=== PATIENT | male | born 1960 | race Caucasian/White ===

== ENCOUNTER 2019-05-15 23:00 | Observation (INO) | payer OTHER ==
[~2019-05-15] VITALS: Ht 188 cm; Wt 113.4 kg
--- NOTE | ~2019-05-15 | PROC ---
[address] [address] PROCEDURE REPORT Name: NATALYA CHANG Room: [address] ADM IN M.R.#: [id number] Admission: 05/16/19 Attend Phys: Dontrell Masterson Discharge: Date of : 56 Report #: [id number] THIS REPORT FOR: //name// For GI report, please see the Provation report in Perceptive 7 content. By: [id number] Records Staff MILANA /TANIA
[~2019-05-15 23:00] MED LIST: ASPIR 8181 MG PO; ASPIRIN81 M2 PO; ATENOLOL 50MG T50 M1 PO; CARISOPRODOL 3350 MG PO; CO Q-10100 MG PO; FISH OIL 1,001000 M2 PO; FLEXERIL PO; GLUCOPHAGE500 MG PO; GLUCOTROL5 MG PO; HYDROCODONE-AP1 EAC6 PO; HYDROCODONE-APA1 TA1 PO; INVOKANA100 MG; LIPITOR 20 MG T20 M1 PO; LISINOPRIL20 MG PO; MEDROLDOSEPACK PO; METFORMIN HCL500 MG PO; NEURONTIN 300300 M1 PO; OMEGA 3-6-9 CO1 EACH PO; PERCOCET 10-321 EACH PO; ROBAXIN500 MG PO; TRAMADOL 50 MG50 MG PO; UNICOMPLEX M TA1 TA1 PO; ZANTAC 150MG T150 MG PO
[2019-05-15 23:05] VITALS: BP 165/96
[2019-05-15] MEDS ORDERED: CRESTOR5 MG PO (23:13)
[2019-05-15] MEDS ORDERED: COZAAR 25 MG TA25 M1 PO (23:14)
[2019-05-15] MEDS ORDERED: TRULICITY1.5 MG/0.5 SQ (23:15)
[2019-05-15] MEDS ORDERED: KRILL OIL 3001 EACH PO (23:15)
[2019-05-15] MEDS ORDERED: AMARYL4 MG PO (23:16)
[2019-05-15] MEDS ORDERED: FARXIGA10 MG PO (23:16)
[2019-05-15 23:30] LABS: ABSOLUTE EOSINOPHILS 0.3 thou/uL (0.0-0.7); ABSOLUTE LYMPHOCYTES 1.2 thou/uL (0.8-5.3); ABSOLUTE MONOCYTES 0.9 thou/uL (0.0-1.2); ABSOLUTE NEUTROPHILS 5.1 thou/uL (1.6-8.1); BASOPHILS 0.6 %; EOSINOPHILS 3.5 %; HEMATOCRIT 47.1 % (42.0-52.0); HEMOGLOBIN 16.4 gm/dL (14.0-18.0); LYMPHOCYTES 15.7 %; MCH 29.9 pg (26.0-34.0); MCHC 34.9 g/dL (28.0-37.0); MCV 85.7 fL (80.0-100.0); MONOCYTES 12.2 %; MPV 8.8 fl. (7.2-11.1); NUCLEATED RBCS 0 /100WBC; PLATELET COUNT* 239 thou/uL (150-400); RBC 5.49 mil/uL (4.50-6.00); RDW-CV 13.4 % (10.5-14.5); WBC 7.4 thou/uL (4.0-11.0)
[2019-05-15 23:45] LABS: CALCIUM 8.8 mg/dL (8.5-10.1); CREATININE 0.9 mg/dL (0.6-1.3); POTASSIUM 3.7 mmol/L (3.5-5.1)
[2019-05-15 23:51] LABS: ALBUMIN 3.7 g/dL (3.4-5.0); TOTAL BILIRUBIN 0.8 mg/dL (<0.1-1.0); TOTAL PROTEIN 7.6 g/dL (6.4-8.2)
[2019-05-16 00:59] LABS: URINE BILIRUBIN NEGATIVE (Negative); URINE BLOOD TRACE (Negative); URINE CLARITY CLEAR; URINE COLOR YELLOW; URINE GLUCOSE-RANDOM 3+ (Negative); URINE KETONES NEGATIVE (Negative); URINE LEUKOCYTES-REFLEX NEGATIVE (Negative); URINE NITRITE-REFLEX NEGATIVE (Negative); URINE PROTEIN TRACE (Negative); URINE SPECIFIC GRAVITY <= 1.005 (1.005-1.030)
[2019-05-16 03:20] VITALS: BP 173/88
[2019-05-16 03:30] VITALS: BP 173/88
--- NOTE | 2019-05-16 08:53 | EKG ---
[place] [address] ELECTROCARDIOGRAM REPORT Name: NATALYA CHANG Room: [address] ADM IN M.R.#: [id number] Admission: 05/16/19 Attend Phys: Dontrell Masterson Discharge: Date of : 56 Report #: [id number] THIS REPORT FOR: //name// [facility] ED Test Date: 2019-05-15 Test Time: 23:16:47 Pat Name: NATALYA CHANG Department: Room: [facility] Gender: M Art Editor: ABIGAIL : 1960 Requested By: Thomas Crawford Order Number: [id number] MD: Willie Brown Measurements Intervals [place] Rate: 76 P: 51 WI: 176 QRS: 14 QRSD: 109 T: 99 QT: 373 QTc: 420 Interpretive Statements Sinus rhythm Probable left atrial enlargement nonspecific t wave abnormalities Compared to ECG 08/31/2015 21:58:02 no change Electronically Signed On 05-16-2019 8:52:43 SENIOR TELECOMMUNICATIONS ENGINEER by Willie Brown [email or web address] <ELECTRONICALLY SIGNED> By: Willie Brown MD, [facility] 05/16/19 0852 2316 2316 Willie Brown MD, [facility] /EPI
--- NOTE | 2019-05-16 16:20 | CON ---
[address] [address] CONSULTATION Name: NATALYA CHANG Room: [address] IN .R.#: [id number] Admission: 05/16/19 Attend Phys: Dontrell Masterson Discharge: Date of : 56 Report #: [id number] THIS REPORT FOR: //name// CC: Pradip Esposito CMM INSPECTOR DICTATED BY: Heather Hernandez [facility] DATE OF SERVICE: 05/16/2019 Please note at the time of this dictation, the patient was seen and physically examined by myself. REASON FOR CONSULTATION: Nausea, vomiting, abdominal pain, gas, bloating, and dysphagia. HISTORY OF PRESENT ILLNESS: This is a 59-year-old male who presented to the Emergency Room with severe worsening of his abdominal pain, which started on , increased on Thursday, seemed to have gotten better on Thursday and by Thursday he was having significant nausea with episode of vomiting, but severe gas and bloating with a lot of belching and flatulence. He states he did have a normal bowel movement last night that was soft and formed without any issues. He has been taking omeprazole for some time for his acid reflux. He also has been complaining on , he had an episode of dysphagia where food got stuck and he had to vomit. He has had several episodes again that he feels like food is getting stuck. It is able to go down; as if he has also had an EGD done back in 2015, in which he was noted to have a Schatzki's ring and dilated with 54, 56 and 58 Erit[place]an and also grade A esophagitis at that time. In September of this year 2018, he had a colonoscopy that showed mild diverticulosis and some external hemorrhoids at that time. He denied any hematemesis with his vomiting at this time. ALLERGIES: PLAVIX. MEDICATIONS: From home include CoQ10, aspirin, Neurontin, Glucophage, Farxiga, Amaryl, Trulicity, Krill oil, Cozaar, Crestor, and multivitamin. PAST MEDICAL HISTORY: Hypertension, type 2 diabetes, [place] with stents, high cholesterol. PAST SURGICAL HISTORY: He has had back surgery secondary to bulging disk as well as his EGD and colonoscopy. FAMILY HISTORY: [place] [address] CONSULTATION Name: NATALYA CHANG Room: [address]#: [id number] Admission: 05/16/19 Attend Phys: Dontrell Masterson Discharge: Date of : 56 Report #: [id number] SOCIAL HISTORY: Alcohol on special occasions. Denies any tobacco or illegal drug use. REVIEW OF SYSTEMS: A 12-point review of systems is essentially negative except what is mentioned in the HPI. PHYSICAL EXAMINATION: VITAL SIGNS: Temperature 36.4, pulse 65, respirations 18, blood pressure 173/88. HEART: Regular rate and rhythm. LUNGS: Clear. ABDOMEN: Soft, positive bowel sounds in all 4 quadrants with tenderness noted in the upper quadrants as well as generalized. LABORATORY DATA: Hemoglobin 16.4, white count is 7.4, platelets 239. Lipase is normal. GFR is 86. LFTs are normal. Abdominal x-ray showed diffuse gas throughout the large and small intestine. CT showed distended stomach with fluid filled small bowel and a nonobstructing gas pattern was noted. IMPRESSION: 1. Nausea and vomiting. 2. Abdominal pain. 3. Severe gas and bloating. 4. Dysphagia. PLAN: 1. EGD today with Dr. Hoang around 1430 hours. 2. We will go ahead and likely start treating the patient with Flagyl 500 mg t.i.d. for 3 weeks for suspected small bowel bacterial overgrowth. 3. Further recommendations to be made after Dr. Hoang sees the patient and procedure has been performed. Thank you for allowing us to participate in this patient's care. Please do not hesitate to call with any questions in regard to this consult. Agree with above assessment and plan by Heather Hernandez <ELECTRONICALLY SIGNED> By: Michael Hoang MD 05/16/19 1620 1210 1253Michael Hoang MD /nt
[2019-05-16 20:00] VITALS: BP 123/73
[2019-05-17] VITALS: BP 133/68
[2019-05-17 04:00] VITALS: BP 126/81
[2019-05-17 07:30] VITALS: BP 141/73
[2019-05-17 18:12] VITALS: BP 141/73
[2019-05-17] MEDS ORDERED: SENOKOT-S1 TA2 PO (18:19)
[2019-05-17] MEDS ORDERED: MIRALAX119 GM PO (18:19)
[2019-05-17] MEDS ORDERED: CARAFATE 11 GM/10 M1 PO (18:19)
[2019-05-17] MEDS ORDERED: PROTONIX40 M1 PO (18:19)
--- NOTE | 2019-05-20 02:06 | PATH ---
[address] [address] PATHOLOGY RPT PROCEDURE Name: NATALYA MOTT Room: [address] Ricardo#: [id number] Admission: 05/16/19 Date of : 56 Discharge: 05/17/19 Report #: [id number] Path Case #: [id number] [facility] Accession Number: [id number] . 01 Material submitted: . stomach - GASTRIC BIOPSY . 01 Clinical history: . Gastritis . 02 Diagnosis: "Gastric biopsy", biopsy: - Gastric mucosa with mild reactive changes, superficial mucosal hemorrhage and minimal acute and chronic inflammation. - Negative H. pylori immunohistochemical stain (block A1); control reacted appropriately. . (CLW:omar; 05/19/2019) [facility] 05/19/2019 133 Local . 02 Electronically signed: . Lexis Lopez MD, Pathologist NPI- [id number] . 01 Gross description: . The specimen is received in formalin, labeled "Natalya Mott, gastric biopsy". Received is a segment of pale ness soft tissue measuring 0.3 cm in maximum dimensions. The specimen is submitted entirely in cassette A1. (CAA; 05/17/2019) QA/QA 05/17/2019 1048 Local . 02 Pathologist provided ICD-10: K29.00, K29.50 . 02 CPT . 216982, V79771 Specimen Comment: A courtesy copy of this report has been sent to [phone] Specimen Comment: [phone], Specimen Comment: Report sent to ,DR PETIT / DR JONES Performed at: 01 [facility] [address] [facility] [address], [place] [id number] MD Tab Winslow MD Phone: [phone] Performed at: [address] [facility] [address] [address] [place], [place] [id number] MD Colby Eddy MD Phone: [phone]
== END 2019-05-17 18:40 | disposition home or self-care (01) ==
LOC: M.ERS 23:00 → M.ORTHSURG 05-16 02:48 → M.TBA-ER 05-16 02:48 → M.ORTHSURG 05-16 03:25 → M.TBA-ER 05-16 03:25 → M.ORTHSURG 05-16 06:50
PROVIDERS: Emergency Medicine Emergency Medical Services; ADMIT Internal Medicine
DX: K56.609 Unspecified intestinal obstruction, unspecified as to partial versus complete obstruction (principal); J98.11 Atelectasis; R13.10 Dysphagia, unspecified; I10 Essential (primary) hypertension; E11.9 Type 2 diabetes mellitus without complications; I25.10 Atherosclerotic heart disease of native coronary artery without angina pectoris; E78.5 Hyperlipidemia, unspecified; I25.2 Old myocardial infarction; Z98.890 Other specified postprocedural states; M19.90 Unspecified osteoarthritis, unspecified site; S32.049A Unspecified fracture of fourth lumbar vertebra, initial encounter for closed fracture; X58.XXXA Exposure to other specified factors, initial encounter; Y93.89 Activity, other specified; Y92.89 Other specified places as the place of occurrence of the external cause; Y99.8 Other external cause status; M54.31 Sciatica, right side

== ENCOUNTER → 2019-06-27 | Outpatient (CLI) | payer OTHER ==
[~2019-06-27] MED LIST changes: +AMARYL4 MG PO; +CARAFATE 11 GM/10 M1 PO; +COZAAR 25 MG TA25 M1 PO; +CRESTOR5 MG PO; +FARXIGA10 MG PO; +KRILL OIL 3001 EACH PO; +MIRALAX119 GM PO; +PROTONIX40 M1 PO; +SENOKOT-S1 TA2 PO; +TRULICITY1.5 MG/0.5 SQ
--- NOTE | 2019-06-27 17:14 | CARDNUC ---
[place] [address] CARDIAC NUCLEAR IMAGING REPORT Name: BERNARDONATALYA HOAGN Room: [facility]#: [id number] Admission: 06/27/19 Attend Phys: Dino Medina, Discharge: Date of : 56 Date of Service: 06/27/19 1713 Report #: [id number] THIS REPORT FOR: cc: Teresa Esposito NP, Stefany NP Liston, Michael J. MD [facility] ~ APPROVED REPORT Study performed: 06/27/2019 12:45:00 Indication: CAD s/p PCI, Surgical Pre-Op clearance. Patient Location: Out-Patient Stress Tech: Rose Leblanc Stress Nurse: Blanka Mejias RN Ht: 6 ft 0 in Wt: 250 lbs BSA: 2.34 m2 BMI: 33.90 Medical History Medical History: Angina, CAD s/p stent, Diabetes, HTN, Hyperlipidemia, Obesity , LBBB, Torn Miniscus, Possible HX per patient of a past [place]. Medications: ASA 81 Mg, Rosuvastatin, Losartan, NTG, Metformin, Amaryl, Trulicity. Allergies: Plavix. Cardiac Risk Factors: Age, DM, FHX of CAD, HTN, Hyperlipidemia. Previous Cardiac Procedures: PCI, unsure of IL. Pretest Chest Pain Characteristics: No chest pain Exercise History: Indeterminate Physical Disabilities: Torn Miniscus/knee pain/weakness. Meds Held (24 hrs): NTG. Resting Data Rest SPECT myocardial perfusion imaging was performed in supine position 30 minutes following the intravenous injection of 11.0 mCi of Tc-99m Sestamibi. Time of rest injection: 1300 The images were gated to evaluate regional wall motion and calculate left ventricular ejection fraction. Administration Route: IV Administration Site: Right [place] [address] CARDIAC NUCLEAR IMAGING REPORT Name: NATALYA CHANG Room: [facility] Ricardo#: [id number] Admission: 06/27/19 Attend Phys: Dino Medina, Discharge: Date of : 56 Date of Service: 06/27/19 1713 Report #: [id number] Pharmacologic stress test was performed by injecting Regadenoson 0.4 mg IV push over 10-15 seconds immediately followed by the intravenous injection of 32.5 mCi of Tc-99m Sestamibi. Time of stress injection: 14:40 Administration Route: IV Administration Site: Right AC Heart Rate at time of stress injection: 110 bpm. Gated Stress SPECT was performed 45 minutes after stress injection. The images were gated to evaluate regional wall motion and calculate left ventricular ejection fraction. Stress Test Details Stress Test: Pharmacologic stress testing performed using 0.4 mg of regadenoson per 5 mL given IV over 10 seconds. Reason for pharmacologic stress test: Torn Miniscus/knee pain/weakness.. HR Max Heart Rate (APMHR): 159 bpm Resting HR: 84 bpm Target HR (85% APMHR): 135 bpm Max HR Achieved: 111 bpm % of APMHR: 69 Recovery HR: 92 bpm BP Resting BP: 147/88 mmHg Max BP: 160/77 mmHg Recovery BP: 142/82 mmHg ECG Resting ECG: Sinus Rhythm Stress ECG: Sinus Tachycardia ST Change: None Arrhythmia: VPC's Recovery ECG: Sinus Rhythm Recovery ST Change: None Recovery Arrhythmia: VPC's Clinical Stress Symptoms: Dyspnea Exercise duration: 00 min 00 sec Exercise capacity: 1.00 METs The patient tolerated Lexiscan infusion without significant cardiac symptoms. Nurse Comments A 59 year old male presented for a sitting Lexiscan s/[place] [address] CARDIAC NUCLEAR IMAGING REPORT Name: NATALYA CHANGOLD Room: [facility]#: [id number] Admission: 06/27/19 Attend Phys: Dino Medina, Discharge: Date of : 56 Date of Service: 06/27/19 1713 Report #: [id number] surgical pre-op clearance. Test well tolerated. Recovery unremarkable with PO caffeine, effective. Patient was escorted by staff to Nuclear Medicine for imaging. Patient was stable and stated he felt good at that time. Stress ECG Conclusion The baseline 12-lead EKG shows sinus rhythm with unifocal premature ventricular contractions. EKGs obtained during and post Lexiscan infusion show sinus rhythm and sinus tachycardia without significant ST segment or T-wave changes. The patient continued to have unifocal premature ventricular contractions. Study Quality Study: Good Artifact: No artifact Study Data At rest, the left ventricular ejection fraction was 56%.. Post stress, the left ventricular ejection was 62%.. TID = 1.05. Perfusion Perfusion images show a partially reversible defect involving the basal to distal inferolateral wall. There appears to be a moderate region of mason-infarct ischemia. No other significant fixed or reversible defects were identified. Wall Motion There is akinesis to hypokinesis of the basal to mid inferior and inferolateral wall. Nuclear Conclusion ECG Findings: negative for ischemia Clinical Findings: negative for ischemia Nuclear Findings: positive for ischemia Exercise Capacity: not assessed Left Ventricular Function: preserved Risk Study: high Perfusion images suggest prior infarct of the basal inferolateral wall with a moderate region of mason-infarct ischemia. Global LV systolic function is preserved with wall motion analysis outlined above. This is a high risk study. <Conclusion> The baseline 12-lead EKG shows sinus rhythm with unifocal premature ventricular contractions. EKGs obtained during [place] [address] CARDIAC NUCLEAR IMAGING REPORT Name: NATALYA CHANG [id number] Admission: 06/27/19 Attend Phys: Dino Medina, Discharge: Date of : 56 Date of Service: 06/27/19 1713 Report #: [id number] infusion show sinus rhythm and sinus tachycardia without significant ST segment or T-wave changes. The patient continued to have unifocal premature ventricular contractions. <ELECTRONICALLY SIGNED> By: Dino Medina MD, FACC 06/27/191712 12 12 Dino Medina MD, FACC /INF
== END ==
LOC: M.NUC 06-16 10:45
DX: I49.3 Ventricular premature depolarization (principal); I25.10 Atherosclerotic heart disease of native coronary artery without angina pectoris; E11.9 Type 2 diabetes mellitus without complications; I10 Essential (primary) hypertension; E78.5 Hyperlipidemia, unspecified; E66.9 Obesity, unspecified; I25.2 Old myocardial infarction; Z79.899 Other long term (current) drug therapy

== ENCOUNTER → 2019-07-29 | Outpatient (CLI) | payer OTHER | LOC: M.ULTRA 07:53 | DX: E04.1 Nontoxic single thyroid nodule (principal) ==

== ENCOUNTER 2019-10-27 10:01 | Emergency (ER) | payer OTHER ==
[~2019-10-27] VITALS: Ht 188 cm; Wt 113.4 kg
[2019-10-27] MEDS ORDERED: OZEMPIC1 MG/0.75 (10:12)
[2019-10-27] MEDS ORDERED: NORCO 5-325 TA1 EAC1 PO (10:50)
[2019-10-27] MEDS ORDERED: PREDNISONE50 MG PO (10:50)
[2019-10-27] MEDS ORDERED: FLEXERIL PO (10:50)
[2019-10-27] MEDS ORDERED: IBUPROFEN 800800 M1 PO (10:50)
[2019-10-27 11:02] VITALS: BP 165/70
== END 2019-10-27 11:03 | disposition home or self-care (01) ==
LOC: M.ERS 10:01
DX: M54.42 Lumbago with sciatica, left side (principal); M53.86 Other specified dorsopathies, lumbar region; I10 Essential (primary) hypertension; E11.9 Type 2 diabetes mellitus without complications; E78.00 Pure hypercholesterolemia, unspecified; I25.2 Old myocardial infarction; Z88.8 Allergy status to other drugs, medicaments and biological substances; Z79.82 Long term (current) use of aspirin; Z79.84 Long term (current) use of oral hypoglycemic drugs

== ENCOUNTER 2020-06-28 00:21 | Observation (INO) | payer OTHER ==
[~2020-06-28] VITALS: Ht 188 cm; Wt 108.9 kg
--- NOTE | ~2020-06-28 | PROC ---
[address] [address] PROCEDURE REPORT Name: NATALYA CHANG Room: [address] M.R.#: [id number] Admission: 06/28/20 Attend Phys: Natalya Nguyen MD Discharge: Date of : 56 Report #: [id number] THIS REPORT FOR: cc: Teresa Esposito Stefany RNP ~ [facility],Medical Records Staff For GI report, please see the Provation reports in Perceptive 7 content. By: [id number] Records Staff [facility] /TANIA
[~2020-06-28 00:21] MED LIST changes: +IBUPROFEN 800800 M1 PO; +NORCO 5-325 TA1 EAC1 PO; +OZEMPIC1 MG/0.75; +PREDNISONE50 MG PO
[2020-06-28 00:38] VITALS: BP 166/89
[2020-06-28 00:52] LABS: ABSOLUTE BASOPHILS 0.1 thou/uL (0.0-0.2); ABSOLUTE EOSINOPHILS 0.4 thou/uL (0.0-0.7); ABSOLUTE LYMPHOCYTES 1.7 thou/uL (0.8-5.3); ABSOLUTE NEUTROPHILS 3.4 thou/uL (1.6-8.1); BASOPHILS 0.9 %; EOSINOPHILS 6.1 %; HEMATOCRIT 46.5 % (42.0-52.0); HEMOGLOBIN 15.9 gm/dL (14.0-18.0); LYMPHOCYTES 25.5 %; MCH 29.3 pg (26.0-34.0); MCHC 34.1 g/dL (28.0-37.0); MCV 86.1 fL (80.0-100.0); MONOCYTES 14.8 %; MPV 9.1 fl. (7.2-11.1); NUCLEATED RBCS 0 /100WBC; PLATELET COUNT* 226 thou/uL (150-400); POLYS 52.7 %; RBC 5.41 mil/uL (4.50-6.00); RDW-CV 13.3 % (10.5-14.5); WBC 6.5 thou/uL (4.0-11.0)
[2020-06-28 00:58] LABS: CALCIUM 8.6 mg/dL (8.5-10.1); POTASSIUM 3.9 mmol/L (3.5-5.1)
[2020-06-28 01:02] LABS: APTT 26.5 Seconds (25.0-31.3); INR 0.9; PROTIME 10.1 Seconds (9.20-11.50)
[2020-06-28 01:13] LABS: TOTAL BILIRUBIN 0.5 mg/dL (<0.1-1.0); TOTAL PROTEIN 7.1 g/dL (6.4-8.2)
[2020-06-28 07:00] VITALS: BP 125/66
[2020-06-28 09:39] VITALS: BP 124/79
--- NOTE | 2020-06-28 11:33 | EKG ---
[place] [address] ELECTROCARDIOGRAM REPORT Name: NATALYA CHANG Room: [address] M.R.#: [id number] Admission: 06/28/20 Attend Phys: Natalya Nguyen, Discharge: Date of : 56 Date of Service: 06/28/20 0027 Report #: [id number] THIS REPORT FOR: //name// [facility] ED Test Date: 2020-06-28 Test Time: 00:27:06 Pat Name: NATALYA CHANG Department: Room: [facility] Gender: M Shank Threader: MR : 1960 Requested By: Rose Mary Roberts Order Number: [id number] MD: Lewis Cheema Measurements Intervals [place] Rate: 67 P: 49 DC: 194 QRS: 14 QRSD: 114 T: 64 QT: 398 QTc: 420 Interpretive Statements Sinus rhythm Probable left atrial enlargement Borderline intraventricular conduction delay Compared to ECG 05/15/2019 23:16:47 T-wave abnormality no longer present Electronically Signed On 06-28-2020 11:33:07 SKATING RINK MANAGER by Lewis Cheema [email or web address] <ELECTRONICALLY SIGNED> By: Lewis Cheema MD, [facility] 06/28/20 1133 0027 0027 Lewis Cheema MD, [facility] /EPI
[2020-06-28 16:35] LABS: CALCIUM 7.9 mg/dL (8.5-10.1); CREATININE 0.8 mg/dL (0.6-1.3); POTASSIUM 4.2 mmol/L (3.5-5.1)
[2020-06-28 16:39] LABS: MAGNESIUM 2.1 mg/dL (1.8-2.4); PHOSPHORUS* 2.9 mg/dL (2.5-4.9)
[2020-06-28 20:00] VITALS: BP 140/71
[2020-06-29] VITALS: BP 142/71
[2020-06-29 03:00] LABS: HEMATOCRIT 42.6 % (42.0-52.0); HEMOGLOBIN 14.3 gm/dL (14.0-18.0); MCH 28.9 pg (26.0-34.0); MCHC 33.6 g/dL (28.0-37.0); MPV 8.7 fl. (7.2-11.1); RBC 4.95 mil/uL (4.50-6.00); RDW-CV 13.7 % (10.5-14.5); WBC 5.9 thou/uL (4.0-11.0)
[2020-06-29 03:15] LABS: ALBUMIN 3.4 g/dL (3.4-5.0); CALCIUM 8.7 mg/dL (8.5-10.1); CREATININE 0.9 mg/dL (0.6-1.3); POTASSIUM 4.3 mmol/L (3.5-5.1); TOTAL BILIRUBIN 0.7 mg/dL (<0.1-1.0); TOTAL PROTEIN 6.1 g/dL (6.4-8.2)
[2020-06-29 04:00] VITALS: BP 135/77
[2020-06-29] MEDS ORDERED: PROTONIX40 M2 PO (09:16)
--- NOTE | 2020-06-29 10:06 | NUR ---
CM SPOKE TO THE PT TO DISCUSS CM ASSESSMENT. PT A&O, INDEPENDENT WITH ADL'S, ACTIVE AND WORKS. PT USES CPAP AT HOME. PT HAS 0 HX OF HH OR SNF. CARDIOLOGY CONSULTED AND SIGNED OFF. GI CONSULT PENDING. NO CM D/C PLANNING NEEDS ANTICIPATED. CM WILL REMAIN AVAILABLE TO ASSIST AND FOLLOW NEEDED.
--- NOTE | 2020-06-29 11:58 | NUR ---
CM INFORMED DURING PRIME ROUNDING OF THE PLAN OF CARE FOR THE PT. PLAN FOR PT TO D/C HOME TODAY WITH SELF-CARE. NO CM D/C PLANNING NEEDS ANTICIPATED. CM WILL REMAIN AVAILABLE TO ASSIST AND FOLLOW NEEDED.
[2020-06-29 15:03] VITALS: BP 135/77
--- NOTE | 2020-06-29 16:11 | NUR ---
RECEIVED DISCHARGE ORDERS. IV DISCONTINUED. TRANSPORTATION ASSOCIATE REMOVED AND RETURNED TO NURSE'S DESK. PATIENT AND HIS EDUCATATED ON F/U APPTS AND HOME MEDICATIONS. NO QUESTIONS OR CONCERNS AT TIME OF DISCHARGE. HE IS LEAVING AMBULATORY PER HIS REQUEST ACCOMPANIED BY HIS AND NURSING STAFF.
--- NOTE | 2020-07-03 13:08 | PATH ---
[address] [address] PATHOLOGY RPT PROCEDURE Name: NATALYA MOTT Room: [address] Ricardo#: [id number] Admission: 06/28/20 Date of : 56 Discharge: 06/29/20 Report #: [id number] Path Case #: [id number] [facility] Accession Number: [id number] . 01 Material submitted: . stomach - GASTRIC BIOPSY R/O H. PYLORI . 01 Clinical history: . EGD . 02 Diagnosis: Gastric biopsy: - Mild non-specific chronic gastritis, negative for Helicobacter pylori organisms and dysplasia. (LUCIO/db; 07/03/2020) . Special stain: H. pylori immuno LBQ 07/03/2020 1049 Local . 02 Electronically signed: . Colby Eddy MD, Pathologist NPI- [id number] . 01 Gross description: . Received in formalin labeled "Natalya Mott, gastric biopsy rule out H. pylori" is a fragment of ness-brown soft tissue measuring 0.5 x 0.4 x 0.1 cm. The specimen is submitted entirely in A1. ([facility]; 06/29/2020) [facility] 06/29/2020 1518 Local . 02 Pathologist provided ICD-10: K29.50 . 02 CPT . 614480, [id number] Specimen Comment: A courtesy copy of this report has been sent to [phone] Specimen Comment: [phone], , Specimen Comment: Report sent to ,DR MCLEAN,DR KENNEDY Specimen Comment: DR JONES Performed at: [address] [facility] [address], [place], [place] [id number] MD Marky Cotter MD Phone: [phone] Performed at: [address] [facility] [address] [place], [place] [id number] MD Colby Eddy MD Phone: [phone]
== END 2020-06-29 16:13 | disposition home or self-care (01) ==
LOC: M.ERS 00:21 → M.TBA-ER 05:06 → M.2W 15:10
PROVIDERS: Internal Medicine; Personal Emergency Response Attendant; ADMIT Internal Medicine; ATTEND Internal Medicine
DX: K21.00 Gastro-esophageal reflux disease with esophagitis, without bleeding (principal); K26.9 Duodenal ulcer, unspecified as acute or chronic, without hemorrhage or perforation; E11.9 Type 2 diabetes mellitus without complications; I10 Essential (primary) hypertension; I25.10 Atherosclerotic heart disease of native coronary artery without angina pectoris; E78.5 Hyperlipidemia, unspecified; R68.81 Early satiety; Z79.899 Other long term (current) drug therapy; Z79.82 Long term (current) use of aspirin; Z79.84 Long term (current) use of oral hypoglycemic drugs; Z20.828 Contact with and (suspected) exposure to other viral communicable diseases